=== PATIENT | female | born 1980 | race Caucasian/White ===

== ENCOUNTER 2019-04-01 21:30 | Emergency (ER) | payer OTHER ==
--- NOTE | 2019-04-01 21:40 | ED Physician Documentation ---
History of Present Illness - Stated complaint Stated Complaint: LT FOOT PX - History obtained from History obtained from: Patient (Patient is a very pleasant 38-year-old female who presents with a chief complaint of injuring her left foot, The patient reports that she twisted her left foot she reports she is able to ambulate she denies any other complaints.) Review of Systems Constitutional: reports: Reviewed and negative Eyes: reports: Reviewed and negative Ears: reports: Reviewed and negative Nose: reports: Reviewed and negative Throat: reports: Reviewed and negative Cardiac: reports: Reviewed and negative Respiratory: reports: Reviewed and negative GI: reports: Reviewed and negative : reports: Reviewed and negative Skin: reports: Reviewed and negative Musculoskeletal: reports: Other (Left foot pain) Neurologic: reports: Reviewed and negative Psychiatric: reports: Reviewed and negative Endocrine: reports: Reviewed and negative Immunocompromised: reports: Reviewed and negative PD PAST MEDICAL HISTORY - Allergies Allergies/Adverse Reactions: Allergies Allergy/AdvReac Type Severity Reaction Status Date / Time Penicillins Allergy Hives Verified 04/01/19 21:52 PD ED PE NORMAL - Vitals Vital signs reviewed: Yes - General General: Alert and oriented X 3, No acute distress - HEENT HEENT: PERRL - Neck Neck: Supple, no meningeal sign - Cardiac Cardiac: RRR, No murmur - Respiratory Respiratory: Clear bilaterally - Abdomen Abdomen: Normal bowel sounds, Soft, Non tender, Non distended - Derm Derm: Warm and dry - Extremities Extremities: No deformity, No tenderness to palpate, Normal ROM s pain, No edema, No calf tenderness / cord, Other (The left foot is without any gross deformity she has palpable DP and PT pulses sensations intact to light touch patient is able to ambulate and bear weight and stand on her toes as well as her heels there is no isolated tenderness at the base of the fifth metatarsal there is no instability of the midfoot.) - Neuro Neuro: Alert and oriented X 3 - Psych Psych: Normal mood, Normal affect Results - Vitals Vitals: Vital Signs - 24 hr 04/01/19 21:49 Temperature 36.9 C Heart Rate 66 Respiratory 18 Rate Blood Pressure 129/81 H O2 Saturation 100 Oxygen O2 Source Room air Departure - Departure Disposition: 01 Home, Self Care Clinical Impression: Injury of foot, left Qualifiers: Encounter type: initial encounter Qualified Code(s): S99.922A - Unspecified injury of left foot, initial encounter Condition: Good Instructions: ED Contusion Lower Ext Follow-Up: Provider,Other [Primary Care Provider] -
[2019-04-01 21:52] VITALS: BP 129/81
--- NOTE | 2019-04-01 22:38 | XRAY Report ---
Reason: left foot injury Procedure Date: 04/01/2019 Accession Number: [id number] / [id number] Procedure: XR - Foot 3 View LT CPT Code: Final Report FULL RESULT: EXAM: LEFT FOOT RADIOGRAPHY EXAM DATE: 04/01/2019 10:08 PM. CLINICAL HISTORY: Left foot injury. Left lateral foot pain. Kicked a coffee table. COMPARISON: None. TECHNIQUE: 3 views. FINDINGS: Bones: Normal. No fractures or bone lesions. Joints: Normal. No subluxations. Soft Tissues: Normal. No soft tissue swelling. Small posterior calcaneal bone spur. IMPRESSION: No acute findings. [facility]
== END 2019-04-01 22:49 | disposition home or self-care (01) ==
LOC: ED 21:30
DX: S99.922A Unspecified injury of left foot, initial encounter (principal); W22.03XA Walked into furniture, initial encounter; X50.1XXA Overexertion from prolonged static or awkward postures, initial encounter; Y93.89 Activity, other specified
CPT/HCPCS: 99282; 99283